=== PATIENT | male | born 1955 | race Caucasian/White ===

== ENCOUNTER 2016-05-29 07:50 | Day surgery (SDC) | payer OTHER ==
[~2016-05-29 07:50] MED LIST: Lidocaine Topical 2% 30 mL Jelly ONE; PROT40T PO
== END 2016-05-29 23:59 | disposition home or self-care (01) ==
LOC: END 07:50
PROVIDERS: ATTEND Surgery
DX: K44.9 Diaphragmatic hernia without obstruction or gangrene (principal); K21.9 Gastro-esophageal reflux disease without esophagitis